=== PATIENT | male | born 1940 | race Caucasian/White ===

== ENCOUNTER → 2018-12-14 | Outpatient (CLI) | payer MEDICARE, OTHER ==
[~2018-12-14] MED LIST: ANTIVERT25 MG PO; FLEXERIL5 MG PO; FLOMAX0.4 MG PO; NAPROSYN500 MG PO; NORCO 325 MG-51 TAB PO; PERCOCET 325 MG1 TA2 PO; PYRIDIUM200 MG PO; TIMOPTIC 0.5% 55 ML OU; ZOFRAN ODT4 MG PO
== END | disposition home or self-care (01) ==
LOC: RAD 11:25
DX: R06.02 Shortness of breath (principal); R09.89 Other specified symptoms and signs involving the circulatory and respiratory systems

== ENCOUNTER → 2019-05-09 | Outpatient (CLI) | payer MEDICARE, OTHER | END | disposition home or self-care (01) | LOC: US 13:50 | DX: N28.1 Cyst of kidney, acquired (principal) ==

== ENCOUNTER 2019-10-06 09:56 | Emergency (ER) | payer MEDICARE, OTHER ==
[~2019-10-06] VITALS: Ht 167.6 cm; Wt 77.1 kg
[2019-10-06] MEDS ORDERED: ZOFRAN4 MG PO (11:36)
[2019-10-06] MEDS ORDERED: FLONASE ALLERG9.9 ML NAS (11:36)
== END 2019-10-06 11:36 | disposition home or self-care (01) ==
LOC: ED 09:56
DX: B34.9 Viral infection, unspecified (principal)

== ENCOUNTER 2020-06-12 17:27 | Emergency (ER) | payer MEDICARE, OTHER ==
[~2020-06-12] VITALS: Wt 77.1 kg
[~2020-06-12 17:27] MED LIST changes: +FLONASE ALLERG9.9 ML NAS; +ZOFRAN4 MG PO
[2020-06-12 17:58] LABS: BASO # 0.1 10*3/uL (0.0-0.1); BASO % 0.5 % (0.0-1.0); EOS # 0.2 10*3/uL (0.0-0.4); EOS % 1.7 % (1.0-4.0); HEMATOCRIT 48.7 % (42.0-52.0); LYMPH # 1.9 10*3/uL (1.3-4.4); LYMPH % 14.9 % (27.0-41.0); MEAN CELL VOLUME 98.6 fl (80.0-94.0); MEAN CORPUSCULAR HGB 32.4 pg (27.0-31.0); MEAN CORPUSCULAR HGB CONC 32.9 g/dl (33.0-37.0); MEAN PLATELET VOLUME 10.9 fl (9.6-12.3); MONO # 1.1 10*3/uL (0.1-1.0); MONO % 8.6 % (3.0-9.0); NEUT # 9.6 10*3/uL (2.3-7.9); PLATELET COUNT AUTOMATED 180 10*3/uL (130-400); RED BLOOD COUNT 4.94 10*6/uL (4.50-5.90); RED CELL DISTRI WIDTH 12.2 % (0-14.5); WHITE BLOOD COUNT 12.9 10*3/uL (4.8-10.8)
[2020-06-12 18:15] LABS: ALBUMIN 3.6 gm/dl (3.1-4.5); CREATININE 3.22 mg/dL (0.70-1.30); POTASSIUM 4.5 mmol/L (3.5-5.1); TOTAL PROTEIN 7.9 gm/dL (6.4-8.2)
[2020-06-12 19:35] LABS: CLARITY CLEAR (CLEAR); COLOR YELLOW (YELLOW)
[2020-06-12 19:36] LABS: BACTERIA TRACE; BILIRUBIN NEGATIVE; BLOOD 2+ (NEGATIVE); EPITHELIAL CELLS 0-2; GLUCOSE NEGATIVE; KETONE NEGATIVE; LEUKO ESTERASE NEGATIVE (NEGATIVE); NITRITE NEGATIVE (NEGATIVE); PH 5.5 (4.5-8.0); RBC 51-100 rbc/hpf (0-2); WBC 0-2 wbc/hpf (0-5)
== END 2020-06-12 22:27 | disposition short-term general hospital (02) ==
LOC: ED 17:27
PROVIDERS: Nurse Practitioner Family
DX: N13.2 Hydronephrosis with renal and ureteral calculous obstruction (principal)

== ENCOUNTER → 2020-07-09 | Outpatient (CLI) | payer MEDICARE ==
[2020-07-09 10:49] LABS: BASO # 0.1 10*3/uL (0.0-0.1); EOS # 0.2 10*3/uL (0.0-0.4); EOS % 2.7 % (1.0-4.0); HEMATOCRIT 49.4 % (42.0-52.0); LYMPH # 1.8 10*3/uL (1.3-4.4); LYMPH % 22.2 % (27.0-41.0); MEAN CELL VOLUME 102.3 fl (80.0-94.0); MEAN CORPUSCULAR HGB 32.5 pg (27.0-31.0); MEAN CORPUSCULAR HGB CONC 31.8 g/dl (33.0-37.0); MEAN PLATELET VOLUME 10.8 fl (9.6-12.3); MONO # 0.6 10*3/uL (0.1-1.0); MONO % 7.3 % (3.0-9.0); NEUT # 5.5 10*3/uL (2.3-7.9); NEUT % 66.6 % (47.0-73.0); PLATELET COUNT AUTOMATED 198 10*3/uL (130-400); RED BLOOD COUNT 4.83 10*6/uL (4.50-5.90); WHITE BLOOD COUNT 8.2 10*3/uL (4.8-10.8)
[2020-07-09 10:58] LABS: BILIRUBIN Negative (Negative); BLOOD 3+ (Negative); CLARITY Clear (Clear); COLOR Yellow (Yellow); GLUCOSE Negative (Negative); KETONE Negative (Negative); LEUKO ESTERASE 1+ (Negative); NITRITE Negative (Negative)
[2020-07-09 11:04] LABS: BACTERIA 2+; MUCOUS 1+; RBC TNTC rbc/hpf (0-2)
[2020-07-09 11:20] LABS: CREATININE 2.32 mg/dL (0.70-1.30); THYROXINE (T4) TOTAL 10.3 ug/dl (4.5-12.1); TOTAL PROTEIN 8.3 gm/dL (6.4-8.2)
== END | disposition home or self-care (01) ==
LOC: LAB 10:09
PROVIDERS: ATTEND Urology
DX: Z12.5 Encounter for screening for malignant neoplasm of prostate (principal); N20.0 Calculus of kidney; R31.9 Hematuria, unspecified

== ENCOUNTER → 2020-07-11 | Outpatient (CLI) | payer MEDICARE | END | disposition home or self-care (01) | LOC: LAB 08:36 | PROVIDERS: ATTEND Urology | DX: R31.9 Hematuria, unspecified (principal); N20.0 Calculus of kidney ==

== ENCOUNTER → 2020-07-30 | Outpatient (CLI) | payer MEDICARE | END | disposition home or self-care (01) | LOC: US 10:56 | PROVIDERS: ATTEND Urology | DX: N20.0 Calculus of kidney (principal) ==

== ENCOUNTER 2020-09-02 08:33 | Emergency (ER) | payer MEDICARE ==
[~2020-09-02] VITALS: Ht 170.1 cm; Wt 77.1 kg
[2020-09-02 09:10] LABS: MEAN CELL VOLUME 99.8 fl (80.0-94.0); MEAN CORPUSCULAR HGB 32.5 pg (27.0-31.0); MEAN CORPUSCULAR HGB CONC 32.6 g/dl (33.0-37.0); MEAN PLATELET VOLUME 10.3 fl (9.6-12.3); PLATELET COUNT AUTOMATED 184 10*3/uL (130-400); RED BLOOD COUNT 4.61 10*6/uL (4.50-5.90); RED CELL DISTRI WIDTH 12.5 % (0-14.5); WHITE BLOOD COUNT 14.1 10*3/uL (4.8-10.8)
[2020-09-02 09:23] LABS: ACT PARTIAL THROMBO TIME 26.3 SECONDS (20.0-32.1)
[2020-09-02 09:25] LABS: ALBUMIN 3.4 gm/dl (3.1-4.5); CREATININE 3.44 mg/dL (0.70-1.30); POTASSIUM 4.2 mmol/L (3.5-5.1); TOTAL PROTEIN 7.8 gm/dL (6.4-8.2)
[2020-09-02 09:30] LABS: BILIRUBIN Negative (Negative); BLOOD 3+ (Negative); CLARITY Clear (Clear); COLOR Yellow (Yellow); GLUCOSE Negative (Negative); KETONE Negative (Negative); LEUKO ESTERASE Trace (Negative); NITRITE Negative (Negative)
[2020-09-02 09:31] LABS: ATYPICAL LYMPHS 2 % (0-0); PLATELET SUFFICIENCY NORMAL (NORMAL); TOTAL CELLS COUNTED 100 #CELLS
[2020-09-02 09:45] LABS: BACTERIA 2+; RBC TNTC rbc/hpf (0-2)
== END 2020-09-02 11:02 | disposition short-term general hospital (02) ==
LOC: ED 08:33
PROVIDERS: Family Medicine
DX: N13.2 Hydronephrosis with renal and ureteral calculous obstruction (principal); Z79.899 Other long term (current) drug therapy

== ENCOUNTER → 2020-11-07 | Outpatient (CLI) | payer MEDICARE ==
[~2020-11-07] MED LIST changes: +AMBIEN5 MG PO; +AMMONIUM LACTA227 GM T; +ATARAX,VISTARIL50 MG PO; +DOK COLACE100 MG PO; +HYDROCHLOROTH12.5 M3 PO; +HYDROCHLOROTHIA25 M1 PO; +HYDROXYZINE HCL25 MG PO; +KENALOG 0.1% OI15 GM T; +UROCIT-K10 MEQ PO
[2020-11-07 10:12] LABS: BASO # 0.1 10*3/uL (0.0-0.1); BASO % 0.8 % (0.0-1.0); BILIRUBIN Negative (Negative); BLOOD 3+ (Negative); CLARITY Cloudy (Clear); COLOR Yellow (Yellow); EOS # 0.2 10*3/uL (0.0-0.4); EOS % 2.2 % (1.0-4.0); GLUCOSE Negative (Negative); HEMATOCRIT 44.5 % (42.0-52.0); KETONE Negative (Negative); LEUKO ESTERASE 1+ (Negative); LYMPH # 2.5 10*3/uL (1.3-4.4); LYMPH % 27.5 % (27.0-41.0); MEAN CELL VOLUME 101.8 fl (80.0-94.0); MEAN CORPUSCULAR HGB 32.7 pg (27.0-31.0); MEAN CORPUSCULAR HGB CONC 32.1 g/dl (33.0-37.0); MEAN PLATELET VOLUME 9.5 fl (9.6-12.3); MONO # 0.9 10*3/uL (0.1-1.0); MONO % 9.6 % (3.0-9.0); NEUT # 5.4 10*3/uL (2.3-7.9); NEUT % 59.6 % (47.0-73.0); NITRITE Negative (Negative); PLATELET COUNT AUTOMATED 179 10*3/uL (130-400); RED BLOOD COUNT 4.37 10*6/uL (4.50-5.90); RED CELL DISTRI WIDTH 12.6 % (0-14.5)
[2020-11-07 10:37] LABS: MUCOUS 1+; RBC TNTC rbc/hpf (0-2)
[2020-11-07 10:49] LABS: ALBUMIN 3.4 gm/dl (3.1-4.5); CREATININE 1.99 mg/dL (0.70-1.30); POTASSIUM 4.2 mmol/L (3.5-5.1)
[2020-11-07 10:52] LABS: TOTAL PROTEIN 7.1 gm/dL (6.4-8.2); URIC ACID 5.7 mg/dL (3.5-7.2)
== END | disposition home or self-care (01) ==
LOC: CT 10-27 13:00
PROVIDERS: Internal Medicine Nephrology; ATTEND Urology
DX: N20.0 Calculus of kidney (principal)

== ENCOUNTER → 2020-11-28 | Outpatient (CLI) | payer MEDICARE | END | disposition home or self-care (01) | LOC: US 13:52 | PROVIDERS: ATTEND Urology | DX: N40.0 Benign prostatic hyperplasia without lower urinary tract symptoms (principal) ==

== ENCOUNTER 2020-12-25 17:51 | Inpatient (IN) | payer MEDICARE ==
[~2020-12-25] VITALS: Ht 167.6 cm; Wt 72.6 kg
[~2020-12-25 17:51] MED LIST changes: -AMBIEN5 MG PO; -AMMONIUM LACTA227 GM T; -ATARAX,VISTARIL50 MG PO; -DOK COLACE100 MG PO; -HYDROCHLOROTH12.5 M3 PO; -HYDROCHLOROTHIA25 M1 PO; -HYDROXYZINE HCL25 MG PO; -KENALOG 0.1% OI15 GM T; -UROCIT-K10 MEQ PO
[2020-12-25 17:57] VITALS: BP 153/84
[2020-12-25 19:16] LABS: BASO # 0.1 10*3/uL (0.0-0.1); BASO % 0.6 % (0.0-1.0); EOS # 0.2 10*3/uL (0.0-0.4); EOS % 1.2 % (1.0-4.0); HEMATOCRIT 46.4 % (42.0-52.0); LYMPH # 2.7 10*3/uL (1.3-4.4); LYMPH % 16.9 % (27.0-41.0); MEAN CELL VOLUME 100.2 fl (80.0-94.0); MEAN CORPUSCULAR HGB 33.3 pg (27.0-31.0); MEAN CORPUSCULAR HGB CONC 33.2 g/dl (33.0-37.0); MEAN PLATELET VOLUME 9.8 fl (9.6-12.3); MONO # 1.2 10*3/uL (0.1-1.0); MONO % 7.6 % (3.0-9.0); NEUT # 11.8 10*3/uL (2.3-7.9); NEUT % 73.3 % (47.0-73.0); PLATELET COUNT AUTOMATED 189 10*3/uL (130-400); RED BLOOD COUNT 4.63 10*6/uL (4.50-5.90); RED CELL DISTRI WIDTH 12.9 % (0-14.5); WHITE BLOOD COUNT 16.1 10*3/uL (4.8-10.8)
[2020-12-25 19:36] LABS: ALBUMIN 3.6 gm/dl (3.1-4.5); ALKALINE PHOSPHATASE 105 U/L (45-117); BUN 25 mg/dl (7-24); CHLORIDE 109 mmol/L (98-107); LIPASE 52 U/L (73-393); POTASSIUM 4.6 mmol/L (3.5-5.1); SGOT/AST 13 IU/L (3-35); SGPT/ALT 18 U/L (12-78); SODIUM 140 mmol/L (136-145)
[2020-12-25 19:37] LABS: TROPONIN I < 0.015 ng/ml (<0.045)
[2020-12-25 20:00] VITALS: BP 153/84
[2020-12-25 21:41] LABS: BILIRUBIN Negative (Negative); BLOOD 1+ (Negative); CLARITY Clear (Clear); COLOR Yellow (Yellow); GLUCOSE Negative (Negative); KETONE Negative (Negative); LEUKO ESTERASE Negative (Negative); NITRITE Negative (Negative); UROBILINOGEN 0.2 E.U./dl (0.0-1.0)
[2020-12-25 21:50] LABS: BACTERIA TRACE
[2020-12-25 22:00] VITALS: BP 110/59
[2020-12-25 23:20] VITALS: BP 133/76
[2020-12-25] MEDS ORDERED: HYDROXYZINE HCL25 MG PO (23:30)
[2020-12-25] MEDS ORDERED: HYDROCHLOROTHIA25 M1 PO (23:30)
[2020-12-26 08:00] VITALS: BP 120/57
[2020-12-26 16:00] VITALS: BP 142/56
[2020-12-26 20:00] VITALS: BP 134/74
[2020-12-27] VITALS: BP 137/65
[2020-12-27 08:00] VITALS: BP 142/66
[2021-01-28] MEDS ORDERED: UROCIT-K10 MEQ PO (17:07)
[2021-01-28] MEDS ORDERED: AMBIEN5 MG PO (17:08)
[2021-01-28] MEDS ORDERED: ATARAX,VISTARIL50 MG PO (17:08)
[2021-01-28] MEDS ORDERED: FLOMAX0.4 MG PO (17:08)
[2021-01-28] MEDS ORDERED: HYDROCHLOROTH12.5 M3 PO (17:09)
[2021-01-28] MEDS ORDERED: KENALOG 0.1% OI15 GM T (17:10)
[2021-01-28] MEDS ORDERED: AMMONIUM LACTA227 GM T (17:11)
[2021-02-01] MEDS ORDERED: DOK COLACE100 MG PO (17:16)
== END 2020-12-27 11:20 | disposition home or self-care (01) | DRG 446 ==
LOC: ED 17:51 → EDHOLD 21:40 → 5E 21:40
PROVIDERS: Emergency Medicine; ADMIT Internal Medicine; ATTEND Internal Medicine
DX: K80.10 Calculus of gallbladder with chronic cholecystitis without obstruction (principal); F51.01 Primary insomnia; Z87.442 Personal history of urinary calculi; Z98.49 Cataract extraction status, unspecified eye; Z79.899 Other long term (current) drug therapy; N18.30 Chronic kidney disease, stage 3 unspecified

== ENCOUNTER 2021-01-17 03:11 | Emergency (ER) | payer MEDICARE ==
[~2021-01-17] VITALS: Ht 167.6 cm; Wt 74.8 kg
[~2021-01-17 03:11] MED LIST changes: +HYDROCHLOROTHIA25 M1 PO; +HYDROXYZINE HCL25 MG PO
[2021-01-17 03:37] LABS: BILIRUBIN Negative (Negative); BLOOD Trace-Lysed (Negative); CLARITY Clear (Clear); COLOR Yellow (Yellow); GLUCOSE Negative (Negative); KETONE Trace (Negative); LEUKO ESTERASE Negative (Negative); NITRITE Negative (Negative); UROBILINOGEN 0.2 E.U./dl (0.0-1.0)
[2021-01-17 04:12] LABS: BASO # 0.1 10*3/uL (0.0-0.1); BASO % 1.3 % (0.0-1.0); EOS # 0.3 10*3/uL (0.0-0.4); HEMATOCRIT 43.7 % (42.0-52.0); LYMPH # 1.7 10*3/uL (1.3-4.4); MEAN CELL VOLUME 102.8 fl (80.0-94.0); MEAN CORPUSCULAR HGB 32.9 pg (27.0-31.0); MEAN PLATELET VOLUME 10.2 fl (9.6-12.3); MONO # 0.7 10*3/uL (0.1-1.0); MONO % 5.8 % (3.0-9.0); NEUT # 8.3 10*3/uL (2.3-7.9); NEUT % 74.5 % (47.0-73.0); PLATELET COUNT AUTOMATED 195 10*3/uL (130-400); RED BLOOD COUNT 4.25 10*6/uL (4.50-5.90); RED CELL DISTRI WIDTH 12.8 % (0-14.5); WHITE BLOOD COUNT 11.1 10*3/uL (4.8-10.8)
[2021-01-17 04:27] LABS: BACTERIA 1+; HYALINE CAST 0-2; MUCOUS TRACE
[2021-01-17 04:27] LABS: ALBUMIN 3.3 gm/dl (3.1-4.5); CREATININE 2.24 mg/dL (0.70-1.30); POTASSIUM 4.3 mmol/L (3.5-5.1)
[2021-01-28] MEDS ORDERED: UROCIT-K10 MEQ PO (17:07)
[2021-01-28] MEDS ORDERED: ATARAX,VISTARIL50 MG PO (17:08)
[2021-01-28] MEDS ORDERED: AMBIEN5 MG PO (17:08)
[2021-01-28] MEDS ORDERED: FLOMAX0.4 MG PO (17:08)
[2021-01-28] MEDS ORDERED: HYDROCHLOROTH12.5 M3 PO (17:09)
[2021-01-28] MEDS ORDERED: KENALOG 0.1% OI15 GM T (17:10)
[2021-01-28] MEDS ORDERED: AMMONIUM LACTA227 GM T (17:11)
[2021-02-01] MEDS ORDERED: DOK COLACE100 MG PO (17:16)
== END 2021-01-17 06:35 | disposition short-term general hospital (02) ==
LOC: ED 03:11
PROVIDERS: Emergency Medicine
DX: N13.2 Hydronephrosis with renal and ureteral calculous obstruction (principal); N13.4 Hydroureter; Z98.890 Other specified postprocedural states

== ENCOUNTER → 2021-03-18 | Outpatient (CLI) | payer MEDICARE ==
[~2021-03-18] MED LIST changes: +AMBIEN5 MG PO; +AMMONIUM LACTA227 GM T; +ATARAX,VISTARIL50 MG PO; +DOK COLACE100 MG PO; +HYDROCHLOROTH12.5 M3 PO; +KENALOG 0.1% OI15 GM T; +UROCIT-K10 MEQ PO
== END | disposition home or self-care (01) ==
LOC: US 14:23
PROVIDERS: ATTEND Urology
DX: N28.1 Cyst of kidney, acquired (principal); N28.89 Other specified disorders of kidney and ureter; N20.0 Calculus of kidney; Z90.49 Acquired absence of other specified parts of digestive tract

== ENCOUNTER → 2021-08-14 | Outpatient (CLI) | payer MEDICARE | END | disposition home or self-care (01) | LOC: RAD 11:05 | PROVIDERS: ATTEND Internal Medicine | DX: M51.37 Other intervertebral disc degeneration, lumbosacral region (principal); M47.897 Other spondylosis, lumbosacral region; M48.07 Spinal stenosis, lumbosacral region ==

== ENCOUNTER → 2021-09-10 | Outpatient (CLI) | payer MEDICARE | END | disposition home or self-care (01) | LOC: US 10:08 | PROVIDERS: ATTEND Urology | DX: N20.0 Calculus of kidney (principal) ==

== ENCOUNTER → 2022-06-09 | Outpatient (CLI) | payer MEDICARE | END | disposition home or self-care (01) | LOC: COVID19 06-08 16:21 | PROVIDERS: ATTEND Internal Medicine | DX: Z20.822 Contact with and (suspected) exposure to COVID-19 (principal) ==

== ENCOUNTER → 2022-06-22 | Outpatient (CLI) | payer MEDICARE | END | disposition home or self-care (01) | LOC: CARD 13:54 | PROVIDERS: ATTEND Internal Medicine | DX: I08.3 Combined rheumatic disorders of mitral, aortic and tricuspid valves (principal) ==

== ENCOUNTER → 2023-11-21 | Outpatient (CLI) | payer MEDICARE | END | disposition home or self-care (01) | LOC: US 08:23 | PROVIDERS: ATTEND Internal Medicine | DX: N28.1 Cyst of kidney, acquired (principal) ==

== ENCOUNTER → 2024-01-02 | Outpatient (CLI) | payer MEDICARE ==
[2024-01-02 11:14] LABS: BASO # 0.1 10*3/uL (0.0-0.1); BASO % 0.9 % (0.0-1.0); EOS # 0.2 10*3/uL (0.0-0.4); HEMATOCRIT 46.8 % (42.0-52.0); LYMPH # 2.2 10*3/uL (1.3-4.4); MEAN CELL VOLUME 103.8 fl (80.0-94.0); MEAN CORPUSCULAR HGB 34.1 pg (27.0-31.0); MEAN CORPUSCULAR HGB CONC 32.9 g/dl (33.0-37.0); MEAN PLATELET VOLUME 10.2 fl (9.6-12.3); MONO # 0.7 10*3/uL (0.1-1.0); MONO % 6.9 % (3.0-9.0); NEUT # 6.3 10*3/uL (2.3-7.9); PLATELET COUNT AUTOMATED 159 10*3/uL (130-400); RED BLOOD COUNT 4.51 10*6/uL (4.50-5.90); RED CELL DISTRI WIDTH 12.1 % (0-14.5); WHITE BLOOD COUNT 9.4 10*3/uL (4.8-10.8)
[2024-01-02 11:46] LABS: POTASSIUM 4.8 mmol/L (3.4-5.1); TOTAL PROTEIN 6.9 gm/dL (6.0-8.0)
[2024-01-02 11:56] LABS: BILIRUBIN Negative (Negative); BLOOD Negative (Negative); COLOR Yellow (Yellow); GLUCOSE Negative (Negative); KETONE Negative (Negative); LEUKO ESTERASE Negative (Negative); NITRITE Negative (Negative); PH 5.5 (4.5-8.0); SPECIFIC GRAVITY 1.015 (1.001-1.030); UROBILINOGEN 0.2 E.U./dl (0.0-1.0)
[2024-01-02 12:17] LABS: CLARITY Clear (Clear)
[2024-01-02 12:25] LABS: RBC 0-2 rbc/hpf (0-2)
== END | disposition home or self-care (01) ==
LOC: LAB 10:36 → CT 11:00
PROVIDERS: ATTEND Urology
DX: Z12.5 Encounter for screening for malignant neoplasm of prostate (principal); N20.0 Calculus of kidney; R53.83 Other fatigue; R10.9 Unspecified abdominal pain; K59.00 Constipation, unspecified; K57.30 Diverticulosis of large intestine without perforation or abscess without bleeding; N28.1 Cyst of kidney, acquired; M47.816 Spondylosis without myelopathy or radiculopathy, lumbar region

== ENCOUNTER → 2024-06-04 | Outpatient (CLI) | payer MEDICARE | END | disposition home or self-care (01) | LOC: US 13:39 | PROVIDERS: ATTEND Urology | DX: N20.0 Calculus of kidney (principal); N28.1 Cyst of kidney, acquired ==

== ENCOUNTER → 2024-06-26 | Outpatient (CLI) | payer MEDICARE | END | disposition home or self-care (01) | LOC: CT 01:47 | PROVIDERS: ATTEND Urology | DX: N28.1 Cyst of kidney, acquired (principal); N20.0 Calculus of kidney; Z90.49 Acquired absence of other specified parts of digestive tract ==

== ENCOUNTER → 2024-12-14 | Outpatient (CLI) | payer MEDICARE | END | disposition home or self-care (01) | LOC: US 00:28 | PROVIDERS: ATTEND Urology | DX: N43.3 Hydrocele, unspecified (principal); N50.3 Cyst of epididymis ==

== ENCOUNTER → 2025-01-08 | Outpatient (CLI) | payer MEDICARE ==
[2025-01-08 12:42] LABS: BASO # 0.1 10*3/uL (0.0-0.1); BASO % 0.9 % (0.0-1.0); EOS # 0.3 10*3/uL (0.0-0.4); EOS % 2.2 % (1.0-4.0); MEAN CELL VOLUME 101.4 fl (80.0-94.0); MEAN CORPUSCULAR HGB 33.1 pg (27.0-31.0); MEAN CORPUSCULAR HGB CONC 32.7 g/dl (33.0-37.0); MEAN PLATELET VOLUME 9.5 fl (9.6-12.3); MONO # 0.6 10*3/uL (0.1-1.0); MONO % 4.9 % (3.0-9.0); NEUT # 8.8 10*3/uL (2.3-7.9); NEUT % 68.1 % (47.0-73.0); PLATELET COUNT AUTOMATED 212 10*3/uL (130-400); RED BLOOD COUNT 4.83 10*6/uL (4.50-5.90); RED CELL DISTRI WIDTH 12.6 % (0-14.5); WHITE BLOOD COUNT 12.9 10*3/uL (4.8-10.8)
[2025-01-08 13:14] LABS: POTASSIUM 4.8 mmol/L (3.4-5.1); TOTAL PROTEIN 7.4 gm/dL (6.0-8.0)
== END | disposition home or self-care (01) ==
LOC: LAB 01:15 → CT 13:00
PROVIDERS: ATTEND Urology
DX: Z12.5 Encounter for screening for malignant neoplasm of prostate (principal); N28.1 Cyst of kidney, acquired; K57.30 Diverticulosis of large intestine without perforation or abscess without bleeding; N20.0 Calculus of kidney; K76.89 Other specified diseases of liver; Z90.49 Acquired absence of other specified parts of digestive tract

== ENCOUNTER → 2025-08-29 | Outpatient (CLI) | payer MEDICARE ==
[2025-08-29 09:27] LABS: BASO # 0.1 10*3/uL (0.0-0.1); BASO % 0.8 % (0.0-1.0); EOS # 0.2 10*3/uL (0.0-0.4); EOS % 1.9 % (1.0-4.0); MEAN CELL VOLUME 101.3 fl (80.0-94.0); MEAN CORPUSCULAR HGB 33.7 pg (27.0-31.0); MEAN PLATELET VOLUME 9.9 fl (9.6-12.3); MONO # 0.6 10*3/uL (0.1-1.0); MONO % 6.0 % (3.0-9.0); NEUT # 6.8 10*3/uL (2.3-7.9); NEUT % 67.5 % (47.0-73.0); NUCLEATED RED BLOOD CELL 0.0 % (0.0-0.0); NUCLEATED RED BLOOD CELL 0.0 10*3/uL (0.0-0.0); PLATELET COUNT AUTOMATED 174 10*3/uL (130-400); RED CELL DISTRI WIDTH 12.1 % (0-14.5)
[2025-08-29 10:10] LABS: BUN 18.0 mg/dl (9-23); SGPT/ALT 14.0 U/L (5-49)
== END | disposition home or self-care (01) ==
LOC: US 09:03
PROVIDERS: Nurse Practitioner; ATTEND Urology
DX: N28.1 Cyst of kidney, acquired (principal); N20.0 Calculus of kidney; R53.83 Other fatigue; E29.1 Testicular hypofunction; D40.0 Neoplasm of uncertain behavior of prostate; N28.9 Disorder of kidney and ureter, unspecified